=== PATIENT | male | born 1935 | race Caucasian/White ===

== ENCOUNTER 2019-03-14 20:52 | Emergency (ER) | payer MEDICARE, MEDICAID ==
[2019-03-14] MEDS ORDERED: Sodium Chloride 0.9% 10 ML Syringe FLUSH PRN (20:55)
[2019-03-14] MEDS ORDERED: Sodium Chloride 0.9% 1,000 ML IV SCH (21:00)
[2019-03-14 21:28] LABS: CHLORIDE,CL 103 mmol/L (98-107); SODIUM,NA 143 mmol/L (136-145)
[2019-03-14] MEDS ORDERED: Ondansetron 4 MG/2 ML SDV IVPUSH ONE (21:49)
--- NOTE | 2019-03-14 22:13 | EDM.PDOC ---
ED HPI GENERAL MEDICAL PROBLEM - General Chief Complaint: General Stated Complaint: nausea, vomiting, loss of appetite Time Seen by Provider: 03/14/19 21:00 Source of Information: Reports: Patient, RN Notes Reviewed History Limitations: Reports: Altered Mental Status - History of Present Illness INITIAL COMMENTS - FREE TEXT/NARRATIVE: Patient is a 83-year-old who is seen today with nausea vomiting loss of appetite coughing he has history of COPD Onset: Gradual Duration: Day(s):, Getting Worse Location: Reports: Chest, Abdomen Severity: Moderate Improves with: Reports: Medication Worsens with: Reports: None Context: Reports: Activity Associated Symptoms: Reports: No Other Symptoms - Related Data Allergies Allergy/AdvReac Type Severity Reaction Status Date / Time No Known Drug Allergies Allergy Cannot Verified 03/14/19 21:36 Remember Home Meds: Home Meds Omeprazole 20 mg PO ACBREAKFAST cap.cr 02/18/17 [Rx] Simvastatin [Zocor] 40 mg PO BEDTIME 09/25/17 [History] Acetaminophen 2 tab PO Q4HR PRN 03/14/19 [History] Albuterol Sulfate 2.5 mg IH Q4HR PRN 03/14/19 [History] Albuterol Sulfate [Proair Hfa] 1 - 2 puff IH Q2HR PRN 03/14/19 [History] Allopurinol [Zyloprim] 100 mg PO DAILY 03/14/19 [History] Arformoterol [Brovana] 15 mcg NEB BID 03/14/19 [History] Aspirin [Children's Aspirin] 81 mg PO DAILY 03/14/19 [History] Budesonide [Pulmicort] 0.5 mg IH BID 03/14/19 [History] Carboxymethylcellulos/Glycerin [Refresh Optive Gel Eye Drops] 1 drop EYEBOTH QID PRN 03/14/19 [History] Cholecalciferol (Vitamin D3) [Vitamin D3] 400 unit PO DAILY 03/14/19 [History] Dextran 70/Hypromellose [Artificial Tears] 2 drop EYEBOTH QID PRN 03/14/19 [ History] Finasteride 5 mg PO DAILY 03/14/19 [History] Latanoprost/Pf [Latanoprost 0.005% Eye Drop] 1 drop EYEBOTH BEDTIME 03/14/19 [ History] Magnesium Oxide 420 mg PO DAILY 03/14/19 [History] Montelukast [Singulair] 10 mg PO DAILY 03/14/19 [History] Neomycin/Polymyxin B Sulf/HC [Gnppjlvp-Lfbg-ZW Eye Drops] 1 drop EYERT QID 03/14 [History] Past Medical History HEENT History: Reports: Cataract, Impaired Vision, Macular Degeneration 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 Cardiovascular History: Reports: High Cholesterol, Hypertension Respiratory History: Reports: COPD Gastrointestinal History: Reports: GERD Genitourinary History: Reports: Prostate Disorder, Other (See Below) Other Genitourinary History: h/o bladder surgery from accident when younger Musculoskeletal History: Reports: Fracture, Gout Other Musculoskeletal History: crushing injury to pelvis and legs Neurological History: Reports: CVA Psychiatric History: Reports: Bipolar Hematologic History: Reports: Blood Transfusion(s) Immunologic History: Reports: None Oncologic (Cancer) History: Reports: None - Infectious Disease History Infectious Disease History: Reports: Chicken Pox, Mumps - Past Surgical History Male Surgical History: Reports: Other (See Below) Musculoskeletal Surgical History: Reports: Other (See Below) Social & Family History - Family History Family Medical History: Noncontributory - Caffeine Use Caffeine Use: Reports: Coffee ED ROS GENERAL - Review of Systems Review Of Systems: See Below Constitutional: Reports: Weakness Respiratory: Reports: Shortness of Breath Cardiovascular: Reports: No Symptoms Endocrine: Reports: No Symptoms GI/Abdominal: Reports: Decreased Appetite, Nausea, Vomiting : Reports: No Symptoms Musculoskeletal: Reports: No Symptoms Skin: Reports: No Symptoms Neurological: Reports: No Symptoms Psychiatric: Reports: No Symptoms Hematologic/Lymphatic: Reports: No Symptoms Immunologic: Reports: No Symptoms ED EXAM, GENERAL - Physical Exam Exam: See Below Exam Limited By: Altered Mental Status General Appearance: Alert, WD/WN, Mild Distress Ears: Normal External Exam, Normal Canal, Hearing Grossly Normal, Normal TMs Ear Exam: Bilateral Ear: Auricle Normal, Canal Normal, TM normal Nose: Normal Inspection, Normal Mucosa, No Blood Throat/Mouth: Normal Inspection, Normal Lips, Normal Teeth, Normal Gums, Normal Oropharynx, Normal Voice, No Airway Compromise Head: Atraumatic, Normocephalic Neck: Normal Inspection, Supple, Non-Tender, Full Range of Motion Respiratory/Chest: Decreased Breath Sounds, Prolonged Expiration Cardiovascular: Normal Peripheral Pulses, Regular Rate, Rhythm, No Edema, No Gallop, No JVD, No Murmur, No Rub GI/Abdominal: Normal Bowel Sounds, Soft, Non-Tender, No Organomegaly, No Distention, No Abnormal Bruit, No Mass (Male) Exam: Deferred Rectal (Males) Exam: Deferred Back Exam: Normal Inspection, Full Range of Motion, NT Extremities: Normal Inspection, Normal Range of Motion, Non-Tender, Normal Capillary Refill, No Pedal Edema Neurological: Alert, Oriented, CN II-XII Intact, Normal Cognition, Normal Gait, Normal Reflexes, No Motor/Sensory Deficits Psychiatric: Normal Mood Skin Exam: Warm, Dry, Intact, Normal Color, No Rash Lymphatic: No Adenopathy Course - Vital Signs Last Recorded V/S: Last Vital Signs Temp 97.7 F 03/14/19 20:54 Pulse 79 03/14/19 20:54 Resp 18 03/14/19 20:54 BP 162/103 H 03/14/19 20:54 Pulse Ox 93 L 03/14/19 20:54 - Orders/Labs/Meds Orders: Active Orders 24 hr Category Date Time Status Chest 2V [CR] Stat Exams 03/14/19 20:56 Taken Sodium Chloride 0.9% [Normal Saline] 1,000 ml Med 03/14/19 21:00 Active IV ASDIRECTED Sodium Chloride 0.9% [Saline Flush] Med 03/14/19 20:55 Active 10 ml FLUSH ASDIRECTED PRN Saline Lock Insert [OM.PC] Stat Oth 03/14/19 20:55 Ordered Medication Orders Sodium Chloride (Normal Saline) 1,000 mls @ 150 mls/hr IV ASDIRECTED LAITH Last Admin: 03/14/19 21:12 Dose: 150 mls/hr Sodium Chloride (Saline Flush) 10 ml FLUSH ASDIRECTED PRN PRN Reason: Keep Vein Open Last Admin: 03/14/19 21:52 Dose: 10 ml Labs: Laboratory Tests 03/14/19 03/14/19 Range/Units 21:00 21:00 WBC 8.5 (4.0-10.2) K/uL RBC 3.77 L (4.33-5.41) M/uL Hgb 11.6 L (13.1-16.8) g/dL Hct 35.2 L (39.0-49.0) % MCV 93.4 (84.0-98.0) fL MCH 30.8 (28.2-33.3) pg MCHC 33.0 (31.7-36.0) g/dL RDW 14.4 H (11.2-14.1) % Plt Count 212 (150-350) K/uL Neut % (Auto) 81.0 H (45.0-80.0) % Lymph % (Auto) 12.5 (10.0-50.0) % [place] % (Auto) 4.5 (2.0-14.0) % Eos % (Auto) 1.5 (0.0-5.0) % Baso % (Auto) 0.5 (0.0-2.0) % Neut # (Auto) 6.91 (1.40-7.00) K/uL Lymph # (Auto) 1.07 (0.50-3.50) K/uL [place] # (Auto) 0.38 (0.00-1.00) K/uL Eos # (Auto) 0.13 (0.00-0.50) K/uL Baso # (Auto) 0.04 (0.00-0.20) K/uL Sodium 143 (136-145) mmol/L Potassium 4.2 (3.5-5.1) mmol/L Chloride 103 (98-107) mmol/L Carbon Dioxide 29.1 (21.0-32.0) mmol/L BUN 22 H (7-18) mg/dL Creatinine 0.89 (0.51-1.17) mg/dL Est Cr Clr Drug Dosing TNP Estimated GFR (MDRD) > 60 mL/min Glucose 128 H (74-106) mg/dL Calcium 9.7 (8.5-10.1) mg/dL Meds: Medications Generic Name Dose Route Start Last Admin Trade Name Freq PRN Reason Stop Dose Admin Sodium Chloride 1,000 mls @ 150 mls/hr 03/14/19 21:00 03/14/19 21:12 Normal Saline IV 150 mls/hr ASDIRECTED LAITH Administration Sodium Chloride 10 ml 03/14/19 20:55 03/14/19 21:52 Saline Flush FLUSH 10 ml ASDIRECTED PRN Administration Keep Vein Open Discontinued Medications Generic Name Dose Route Start Last Admin Trade Name Freq PRN Reason Stop Dose Admin Ondansetron HCl 4 mg 03/14/19 21:49 03/14/19 21:52 Zofran IVPUSH 03/14/19 21:50 4 mg ONETIME ONE Administration Departure - Departure Time of Disposition: 22:13 Disposition: DC/[facility] to [facility] Condition: Fair Clinical Impression: COPD (chronic obstructive pulmonary disease) Qualifiers: COPD type: COPD with acute exacerbation Qualified Code(s): J44.1 - Chronic obstructive pulmonary disease with (acute) exacerbation - Discharge Information *PRESCRIPTION DRUG MONITORING PROGRAM REVIEWED*: No *COPY OF PRESCRIPTION DRUG MONITORING REPORT IN PATIENT JAYNE: No Referrals: Juan Shaikh MD [Primary Care Provider] - Care Plan Goals: Patient is to continue the Zithromax as ordered Prednisone 20 mg by mouth 4 times a day for 5 days then prednisone 10 mg by mouth 4 times a day for 3 days then 5 mg by mouth 4 times a day for 3 days. Zofran 4 mg every 6 hours when necessary for nausea and vomiting patient is to return to clinic if not better - My Orders Last 24 Hours: My Active Orders 03/14/19 20:55 Sodium Chloride 0.9% [Saline Flush] 10 ml FLUSH ASDIRECTED PRN Saline Lock Insert [OM.PC] Stat 03/14/19 20:56 Chest 2V [CR] Stat 03/14/19 21:00 Sodium Chloride 0.9% [Normal Saline] 1,000 ml IV ASDIRECTED - Assessment/Plan Last 24 Hours: My Active Orders 03/14/19 20:55 Sodium Chloride 0.9% [Saline Flush] 10 ml FLUSH ASDIRECTED PRN Saline Lock Insert [OM.PC] Stat 03/14/19 20:56 Chest 2V [CR] Stat 03/14/19 21:00 Sodium Chloride 0.9% [Normal Saline] 1,000 ml IV ASDIRECTED
[2019-03-14] MEDS ORDERED: Acetaminophen 325 MG Tab PO ONE (22:24)
[2019-03-14] MEDS ORDERED: Metoprolol Succinate 50 MG Tab.ER PO ONE (22:25)
[2019-03-14] MEDS ORDERED: predniSONE 20 MG Tab PO ONE (22:58)
[2019-03-15 04:12] VITALS: BP 149/78; PULSE 74
== END 2019-03-14 23:05 ==
LOC: LL.ED 20:52
DX: J44.1 Chronic obstructive pulmonary disease with (acute) exacerbation (principal); R11.2 Nausea with vomiting, unspecified; I10 Essential (primary) hypertension; E78.00 Pure hypercholesterolemia, unspecified; K21.9 Gastro-esophageal reflux disease without esophagitis; F31.9 Bipolar disorder, unspecified; Z86.73 Personal history of transient ischemic attack (TIA), and cerebral infarction without residual deficits; Z79.899 Other long term (current) drug therapy; Z79.82 Long term (current) use of aspirin
CPT/HCPCS: 36415; 71046; 80048; 85025; 96361; 96374; 99284-25; A9270-GY; J2405; J7030

== ENCOUNTER 2019-03-29 12:45 | Emergency (ER) | payer MEDICARE, MEDICAID ==
[2019-03-29 13:01] VITALS: BP 119/75; PULSE 61
--- NOTE | 2019-03-29 13:33 | EDM.PDOC ---
ED HPI GENERAL MEDICAL PROBLEM - General Chief Complaint: Headache Stated Complaint: headache Time Seen by Provider: 03/29/19 12:50 Source of Information: Reports: Patient History Limitations: Reports: No Limitations, Altered Mental Status - History of Present Illness INITIAL COMMENTS - FREE TEXT/NARRATIVE: Patient is a 83-year-old who states that for the last for 5 days he's had a massive headache which she scores it at least a 12 out of 10 he does not look in distress and is able to talk with us Onset: Gradual Duration: Day(s):, Getting Worse Location: Reports: Head Quality: Reports: Ache, Stabbing Severity: Severe Improves with: Reports: None Worsens with: Reports: Medication Associated Symptoms: Reports: Nausea/Vomiting, Shortness of Breath Treatments INSOLE CHANNELER: Reports: Acetaminophen, NSAIDS Headache Pain Score (Numeric/FACES): 10 - Related Data Allergies Allergy/AdvReac Type Severity Reaction Status Date / Time No Known Drug Allergies Allergy Cannot Verified 03/29/19 12:55 Remember Home Meds: Home Meds Simvastatin [Zocor] 40 mg PO BEDTIME 09/25/17 [History] Acetaminophen 2 tab PO Q4HR PRN MDD 3000 mg in 24 hr 03/14/19 [History] Albuterol Sulfate 2.5 mg IH Q4HR PRN 03/14/19 [History] Albuterol Sulfate [Proair Hfa] 1 - 2 puff IH Q2HR PRN 03/14/19 [History] Allopurinol [Zyloprim] 100 mg PO DAILY@99903/14/19 [History] Arformoterol [Brovana] 15 mcg NEB BID@999,199903/14/19 [History] Aspirin [Children's Aspirin] 81 mg PO DAILY@99903/14/19 [History] Budesonide [Pulmicort] 0.5 mg IH BID@999,199903/14/19 [History] Carboxymethylcellulos/Glycerin [Refresh Optive Gel Eye Drops] 1 drop EYEBOTH QID PRN 03/14/19 [History] Cholecalciferol (Vitamin D3) [Vitamin D3] 400 unit PO DAILY@99903/14/19 [ History] Dextran 70/Hypromellose [Artificial Tears] 2 drop EYEBOTH QID PRN 03/14/19 [ History] Finasteride 5 mg PO DAILY@99903/14/19 [History] Latanoprost/Pf [Latanoprost 0.005% Eye Drop] 1 drop EYEBOTH BEDTIME 03/14/19 [ History] Magnesium Oxide 420 mg PO BEDTIME 03/14/19 [History] Montelukast [Singulair] 10 mg PO BEDTIME 03/14/19 [History] Neomycin/Polymyxin B Sulf/HC [Gpgiqbtj-[id number]-XH Eye Drops] 1 drop EYERT QID@08,12 ,17,20 03/14/19 [History] Azithromycin [Zithromax] 500 mg PO [id number] 03/29/19 [History] Omeprazole 20 mg PO DAILY@1000 03/29/19 [History] Ondansetron [Zofran] 4 mg PO Q6H PRN 03/29/19 [History] predniSONE [Prednisone] 20 mg PO DAILY@1000 03/29/19 [History] Past Medical History HEENT History: Reports: Cataract, Impaired Vision, Macular Degeneration 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 Cardiovascular History: Reports: High Cholesterol, Hypertension Respiratory History: Reports: COPD Gastrointestinal History: Reports: GERD Genitourinary History: Reports: Prostate Disorder, Other (See Below) Other Genitourinary History: h/o bladder surgery from accident when younger Musculoskeletal History: Reports: Fracture, Gout Other Musculoskeletal History: crushing injury to pelvis and legs Neurological History: Reports: CVA Psychiatric History: Reports: Bipolar Hematologic History: Reports: Blood Transfusion(s) Immunologic History: Reports: None Oncologic (Cancer) History: Reports: None - Infectious Disease History Infectious Disease History: Reports: Chicken Pox, Mumps - Past Surgical History Male Surgical History: Reports: Other (See Below) Musculoskeletal Surgical History: Reports: Other (See Below) Social & Family History - Family History Family Medical History: Noncontributory - Caffeine Use Caffeine Use: Reports: Coffee ED ROS GENERAL - Review of Systems Review Of Systems: See Below Constitutional: Reports: No Symptoms HEENT: Reports: No Symptoms Respiratory: Reports: Shortness of Breath Cardiovascular: Reports: No Symptoms Endocrine: Reports: No Symptoms GI/Abdominal: Reports: No Symptoms : Reports: No Symptoms Musculoskeletal: Reports: No Symptoms Skin: Reports: No Symptoms Neurological: Reports: Confusion Psychiatric: Reports: No Symptoms Hematologic/Lymphatic: Reports: No Symptoms Immunologic: Reports: No Symptoms - Physical Exam Exam: See Below Exam Limited By: Altered Mental Status General Appearance: Alert, WD/WN, Severe Distress Ears: Normal External Exam, Normal Canal, Hearing Grossly Normal, Normal TMs Nose: Normal Inspection, Normal Mucosa, No Blood Throat/Mouth: Normal Inspection, Normal Lips, Normal Teeth, Normal Gums, Normal Oropharynx, Normal Voice, No Airway Compromise Head Exam: Atraumatic, Normocephalic Neck: Normal Inspection, Supple, Non-Tender, Full Range of Motion Respiratory/Chest: Decreased Breath Sounds, Prolonged Expiration Cardiovascular: Normal Peripheral Pulses, Regular Rate, Rhythm, No Edema, No Gallop, No JVD, No Murmur, No Rub GI/Abdominal: Normal Bowel Sounds, Soft, Non-Tender, No Organomegaly, No Distention, No Abnormal Bruit, No Mass Neuro Exam (Abbreviated): Alert, Oriented, CN II-XII Intact Back Exam: Normal Inspection, Full Range of Motion, NT Extremities: Normal Inspection, Normal Range of Motion, Non-Tender, No Pedal Edema, Normal Capillary Refill Skin Exam: Warm, Dry, Intact, Normal Color, No Rash Course - Vital Signs Last Recorded V/S: Last Vital Signs Temp 97.6 F 03/29/19 13:00 Pulse 61 03/29/19 13:00 Resp 20 03/29/19 13:00 BP 119/75 03/29/19 13:00 Pulse Ox 99 03/29/19 13:00 - Orders/Labs/Meds Orders: Active Orders 24 hr Category Date Time Status Head wo Cont [CT] Stat Exams 03/29/19 13:22 Taken Departure - Departure Time of Disposition: 14:20 Disposition: Home, Self-Care 01 Condition: Fair Clinical Impression: Sinusitis Sinusitis Qualifiers: Sinusitis location: ethmoidal Chronicity: acute - Discharge Information *PRESCRIPTION DRUG MONITORING PROGRAM REVIEWED*: No *COPY OF PRESCRIPTION DRUG MONITORING REPORT IN PATIENT JAYNE: No Referrals: Juan Shaikh MD [Primary Care Provider] - Forms: ED Department Discharge Care Plan Goals: CT of the head shows ethmoid and frontal sinusitis with mucosal swelling. At this time patient will be started on Augmentin 875 twice a day for 10 days we will go ahead and give him Maya-D 24 hours 1 tablet a day and Flonase one shot each nostril twice a day. - My Orders Last 24 Hours: My Active Orders 03/29/19 13:22 Head wo Cont [CT] Stat - Assessment/Plan Last 24 Hours: My Active Orders 03/29/19 13:22 Head wo Cont [CT] Stat
== END 2019-03-29 15:00 ==
LOC: LL.ED 12:45
DX: J01.20 Acute ethmoidal sinusitis, unspecified (principal); I10 Essential (primary) hypertension; E78.5 Hyperlipidemia, unspecified; J44.9 Chronic obstructive pulmonary disease, unspecified; K21.9 Gastro-esophageal reflux disease without esophagitis; Z79.51 Long term (current) use of inhaled steroids; Z79.899 Other long term (current) drug therapy
CPT/HCPCS: 70450; 99284-25

== ENCOUNTER 2020-12-15 22:15 | Emergency (ER) | payer MEDICARE, MEDICAID ==
[~2020-12-15 22:15] MED LIST: Lidocaine 2% HCl 11 ML Jelly Filled Syringe TOP ONE
--- NOTE | 2020-12-15 22:19 | EDM.PDOC ---
ED HPI GENERAL MEDICAL PROBLEM - General Chief Complaint: Genitourinary Problem Stated Complaint: blister to end of penis,unable to void Time Seen by Provider: 12/15/20 22:18 Source of Information: Reports: Patient, Assisted Records (Extremely limited verbal report prior to transfer), Old Records ([facility] EMR. No paper hospital chart available.) History Limitations: Reports: Altered Mental Status - History of Present Illness INITIAL COMMENTS - FREE TEXT/NARRATIVE: The patient was brought to the emergency room via transport vehicle from [facility] for further evaluation of a blister on his glans penis and a 2-3-day history of difficulty with urination. No history of local injury, fever, hematuria, colic, or other UTI symptoms. No recent history of abdominal pain, heartburn, nausea, diarrhea, melena, gross hematochezia, or any food intolerance, including fatty foods, etc.. The patient also denies any recent fever, cough, wheezing, dyspnea, etc.. The patient denies any chest pain/pressure, heart flutter, dizziness, orthostasis, orthopnea, diaphoresis, paresthesias, recent decreased exercise tolerance, or any other anginal-type symptoms. He is a somewhat poor historian secondary to his borderline organic brain syndrome and presbycusis. Bladder scan at the snf prior to patient's transfer showed urinary retention of 300+ cc. Onset: Gradual, Unknown/Unsure Onset Date: 12/13/20 Duration: Constant, Getting Worse Location: Reports: Abdomen (Secondary to urinary retention). Denies: Head, Face, Neck, Chest, Back, Pelvis, Upper Extremity, Left, Upper Extremity, Right, Radiates to Quality: Reports: Ache, Same as Previous Episode Severity: Moderate Improves with: Reports: None Worsens with: Reports: None Context: Reports: Other (As above). Denies: Sick Contact, Trauma Associated Symptoms: Reports: Rash (Blister as above). 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 (see below) (None) - Related Data Allergies Allergy/AdvReac Type Severity Reaction Status Date / Time No Known Drug Allergies Allergy Cannot Verified 03/29/19 12:55 Remember Home Meds: Home Meds Simvastatin [Zocor] 40 mg PO BEDTIME 09/25/17 [History] Albuterol Sulfate 2.5 mg IH Q4HR PRN 03/14/19 [History] Albuterol Sulfate [Proair Hfa] 1 - 2 puff IH Q2HR PRN 03/14/19 [History] Aspirin [Children's Aspirin] 81 mg PO DAILY 03/14/19 [History] Carboxymethylcellulos/Glycerin [Refresh Optive Gel Eye Drops] 1 drop EYEBOTH QID PRN 03/14/19 [History] Cholecalciferol (Vitamin D3) [Vitamin D3] 400 unit PO DAILY 03/14/19 [History] Finasteride 5 mg PO DAILY 03/14/19 [History] Latanoprost/Pf [Latanoprost 0.005% Eye Drop] 1 drop EYEBOTH BEDTIME 03/14/19 [History] Magnesium Oxide 420 mg PO BEDTIME 03/14/19 [History] Montelukast [Singulair] 10 mg PO BEDTIME 03/14/19 [History] Neomycin/Polymyxin B/Hydrocort [Wpbkojka-Auje-WN Eye Drops] 1 drop EYERT QID@08,12,17,20 03/14/19 [History] allopurinoL [Zyloprim] 100 mg PO DAILY 03/14/19 [History] Omeprazole 20 mg PO DAILY 03/29/19 [History] Docusate Sodium [Colace] 1 - 2 cap PO DAILY PRN 12/15/20 [History] Ibuprofen 400 mg PO Q6HR PRN 12/15/20 [History] Menthol [[place]] 1 lozenge PO Q2HR PRN 12/15/20 [History] Propylene Glycol/PEG 400/Pf [Lubricant Eye 0.4%-0.3% Drops] 1 each OP ,18 12/15/20 [History] Tamsulosin [Tamsulosin 24 Hr] 0.4 mg PO DAILY 12/15/20 [History] guaiFENesin/Dextromethorphan [Mucinex Dm ER 600-30 mg Tablet] 1 each PO 08,18 12/15/20 [History] Past Medical History HEENT History: Reports: Allergic Rhinitis, Cataract, Glaucoma, Hard of Hearing, Impaired Vision, Macular Degeneration, Sinusitis. Denies: Retinal Detachment Other HEENT History: Dry eye syndrome. History of right retinal artery occlusion additional. Bilateral blindness with additional previous left central retinal vein occlusion. Bilateral macular edema. Cardiovascular History: Reports: CAD, Cardiomyopathy, Heart Failure, High Cholesterol, Hypertension, PVD, Other (See Below). Denies: IA Other Cardiovascular History: CHF including diastolic dysfunction. Hypertension with history of hypotension. Bilateral carotid occlusive disease. Respiratory History: Reports: Bronchitis, Recurrent, COPD, Intubation, Previous, Pneumonia, Recurrent, Other (See Below). Denies: Intubation, Difficult Other Respiratory History: Recurrent aspiration pneumonia secondary to dysphagia? Gastrointestinal History: Reports: Cholelithiasis, Chronic Constipation, GERD, Hiatal Hernia, Pancreatitis, Other (See Below) Other Gastrointestinal History: Dysphagia. Pancreatitis on 08/18/2016 likely secondary to cholestasis. Portal hypertension. Diaphragmatic hernia. Genitourinary History: Reports: BPH, Prostate Disorder, Urinary Incontinence, UTI, Recurrent, Other (See Below) Other Genitourinary History: h/o bladder surgery from accident/trauma when younger. 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 Musculoskeletal History: Reports: Arthritis, Fracture, Gout, Osteoarthritis, Other (See Below) Other Musculoskeletal History: Crushing injury to pelvis and legs bilaterally requiring surgery as below. 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 Psychiatric History: Reports: Alzheimers Disease, Anxiety, Bipolar, Dementia, Depression, Other (See Below) Other Psychiatric History: Beginning organic brain syndrome as above. Endocrine/Metabolic History: Reports: Vitamin D Deficiency, Other (See Below) Other Endocrine/Metabolic History: Hypoalbuminemia. Hematologic History: Reports: Blood Transfusion(s) Immunologic History: Reports: None Oncologic (Cancer) History: Reports: None - Infectious Disease History Infectious Disease History: Reports: Chicken Pox, Mumps - Past Surgical History HEENT Surgical History: Reports: Cataract Surgery, Oral Surgery, Other (See Below) Other HEENT Surgeries/Procedures: Complete teeth extraction. GI Surgical History: Reports: Cholecystectomy, Colonoscopy, ERCP, Other (See Below) Other GI Surgeries/Procedures: Probable ERCP with additional cholecystectomy in 2017. Male Surgical History: Reports: Other (See Below) Other Male Surgeries/Procedures: Bladder repair secondary to severe crush injury. Musculoskeletal Surgical History: Reports: ORIF, Other (See Below) Other Musculoskeletal Surgeries/Procedures:: Severe trauma requiring nonspecific bilateral leg surgery/ORIF, along with pelvic surgery from trauma? - Past Imaging History Past Imaging History: Reports: CAT Scan (Head on 03/29/2019. Abdomen pelvis on 08/18/2016. Chest on 08/06/2016 and 05/30/2016.) Social & Family History - Family History Family Medical History: No Pertinent Family History - Tobacco Use Tobacco Use Status *Q: Former Tobacco User Tobacco Use Within Last Twelve Months: No Years of Tobacco use: 20 Packs/Tins Daily: 4 Used Tobacco, but Quit: Yes Smoking Cessation Information Provided To Patient: No Second Hand Smoke Exposure: No Second Hand Smoke Education Provided: No - Caffeine Use Caffeine Use: Reports: Coffee - Alcohol Use Alcohol Use History: No Alcohol Use in Last Twelve Months: No - Living Situation & Occupation Living situation: Reports: Extended Care Facility ([facility]) 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 ED EXAM, RENAL/ - Physical Exam Exam: See Below Exam Limited By: No Limitations General Appearance: Alert, WD/WN, No Apparent Distress, Cachetic (Mild) Eye Exam: Bilateral Eye: Vision Changes (Stable bilateral blindness. Anisocoria with right pupil 6 mm and left pupil 3 mm) Ears: Normal External Exam, Normal TMs, Hearing Loss (Moderate bilateral presbycusis) Nose: Normal Inspection, Normal Mucosa, No Blood Throat/Mouth: Normal Inspection, Normal Lips, Normal Gums, Normal Oropharynx, Normal Voice, No Airway Compromise. No: Normal Teeth (Complete absent dentition), Dysphagia, Perioral Cyanosis Head: Atraumatic, Normocephalic. No: Facial Swelling, Facial Tenderness, Sinus Tenderness Neck: Supple, Non-Tender, Full Range of Motion, Carotid Bruit (Mild bilateral carotid bruits). No: Lymphadenopathy (L), Lymphadenopathy (R), Thyromegaly Respiratory/Chest: No Respiratory Distress, Lungs Clear, Normal Breath Sounds, No Accessory Muscle Use, Chest Non-Tender. No: Pleural Rub, Retractions Cardiovascular: Normal Peripheral Pulses, Regular Rate, Rhythm, No Edema, No Gallop, No JVD, No Murmur, No Rub. No: Gallop/S3, Gallop/S4, Friction Rub GI/Abdominal: Normal Bowel Sounds, Soft, Non-Tender, No Organomegaly, No Distention, No Abnormal Bruit, No Mass. No: Guarding (Male) Exam: Other (Clear blister over the glans penis with partial phimosis and severe urethral stenosis) Rectal (Males) Exam: Deferred Back Exam: Normal Inspection, Full Range of Motion. No: CVA Tenderness (L), CVA Tenderness (R), Muscle Spasm Extremities: Normal Inspection, Normal Range of Motion, Non-Tender, No Pedal Edema, Normal Capillary Refill. No: Pam's Sign Neurological: Alert, Normal Reflexes (Negative Babinski's), Confused (Mild organic brain syndrome stable by history) Psychiatric: Normal Affect, Normal Mood Skin Exam: Warm, Dry, Intact, Normal Color, No Rash. No: Diaphoretic, Wound/Incision Lymphatic: No Adenopathy Course - Vital Signs Last Recorded V/S: Last Vital Signs Temp 36.7 C 12/15/20 22:15 Pulse 72 12/15/20 22:15 Resp 18 12/15/20 22:15 BP 132/68 12/15/20 22:15 Pulse Ox 95 12/15/20 22:15 Vital Signs - 24 hr 12/15/20 22:15 Temperature [ 36.7 C Temporal] Pulse, 72 Peripheral [ Left Pulse Oximetry] Respiratory 18 Rate Blood Pressure 132/68 [Left Upper Arm ] O2 Sat by Pulse 95 Oximetry - Orders/Labs/Meds Orders: Active Orders 24 hr Category Date Time Status Peripheral IV Care [RC] . DIRECTED Care 12/15/20 22:24 Active CULTURE URINE [RM] Routine Lab 12/15/20 22:51 Received Sodium Chloride 0.9% [Saline Flush] Med 12/15/20 22:24 Active 10 ml FLUSH ASDIRECTED PRN Obtain Past Medical Record [OM.PC] Routine Oth 12/15/20 22:23 Active Peripheral IV Insertion Adult [OM.PC] Routine Oth 12/15/20 22:24 Ordered Medication Orders Sodium Chloride (Sodium Chloride 0.9% 10 Ml Syringe) 10 ml FLUSH ASDIRECTED PRN PRN Reason: Keep Vein Open Labs: Laboratory Tests 06/17/21 06/17/21 06/17/21 Range/Units 22:30 22:30 22:30 WBC 6.6 (4.0-10.2) K/uL RBC 3.59 L (4.33-5.41) M/uL Hgb 11.2 L (13.1-16.8) g/dL Hct 34.6 L (39.0-49.0) % MCV 96.4 (84.0-98.0) fL MCH 31.2 (28.2-33.3) pg MCHC 32.4 (31.7-36.0) g/dL RDW 13.7 (11.2-14.1) % Plt Count 217 (150-350) K/uL Neut % (Auto) 72.9 (45.0-80.0) % Lymph % (Auto) 18.5 (10.0-50.0) % [place] % (Auto) 6.8 (2.0-14.0) % Eos % (Auto) 1.5 (0.0-5.0) % Baso % (Auto) 0.3 (0.0-2.0) % Neut # (Auto) 4.84 (1.40-7.00) K/uL Lymph # (Auto) 1.23 (0.50-3.50) K/uL [place] # (Auto) 0.45 (0.00-1.00) K/uL Eos # (Auto) 0.10 (0.00-0.50) K/uL Baso # (Auto) 0.02 (0.00-0.20) K/uL Sodium 143 (136-145) mmol/L Potassium 4.4 (3.5-5.1) mmol/L Chloride 107 (98-107) mmol/L Carbon Dioxide 31.2 (21.0-32.0) mmol/L BUN 25 H (7-18) mg/dL Creatinine 1.21 H (0.51-1.17) mg/dL Est Cr Clr Drug Dosing TNP Estimated GFR (MDRD) 57 mL/min Glucose 127 H (70-99) mg/dL Uric Acid 4.3 (2.6-7.2) mg/dL Calcium 8.8 (8.5-10.1) mg/dL Phosphorus 2.9 (2.6-4.7) mg/dL Magnesium 2.0 (1.8-2.4) mg/dL Total Bilirubin 0.2 (0.2-1.0) mg/dL AST 18 (15-37) U/L ALT 15 (12-78) U/L Alkaline Phosphatase 69 (46-116) IU/L Total Protein 6.5 (6.4-8.2) g/dL Albumin 3.3 L (3.4-5.0) g/dL Specimen Type Urine Color Urine Appearance Urine pH (5.0-9.0) Ur Specific [place] (1.005-1.030) Urine Protein (NEGATIVE) mg/dL Urine Glucose (UA) (NEGATIVE) mg/dL Urine Ketones (NEGATIVE) mg/dL Urine Occult Blood (NEGATIVE) Urine Nitrite (NEGATIVE) Urine Bilirubin (NEGATIVE) Urine Urobilinogen (0.2-1.0) E.U./dL Ur Leukocyte Esterase (NEGATIVE) Urine RBC /HPF Urine WBC /HPF Ur Epithelial Cells /LPF Urine Bacteria (NONE TO FEW) /HPF SARS-CoV-2 RNA (MARIA LUISA) (NEGATIVE) 12/15/20 12/15/20 Range/Units 22:51 23:10 WBC (4.0-10.2) K/uL RBC (4.33-5.41) M/uL Hgb (13.1-16.8) g/dL Hct (39.0-49.0) % MCV (84.0-98.0) fL MCH (28.2-33.3) pg MCHC (31.7-36.0) g/dL RDW (11.2-14.1) % Plt Count (150-350) K/uL Neut % (Auto) (45.0-80.0) % Lymph % (Auto) (10.0-50.0) % [place] % (Auto) (2.0-14.0) % Eos % (Auto) (0.0-5.0) % Baso % (Auto) (0.0-2.0) % Neut # (Auto) (1.40-7.00) K/uL Lymph # (Auto) (0.50-3.50) K/uL [place] # (Auto) (0.00-1.00) K/uL Eos # (Auto) (0.00-0.50) K/uL Baso # (Auto) (0.00-0.20) K/uL Sodium (136-145) mmol/L Potassium (3.5-5.1) mmol/L Chloride (98-107) mmol/L Carbon Dioxide (21.0-32.0) mmol/L BUN (7-18) mg/dL Creatinine (0.51-1.17) mg/dL Est Cr Clr Drug Dosing Estimated GFR (MDRD) mL/min Glucose (70-99) mg/dL Uric Acid (2.6-7.2) mg/dL Calcium (8.5-10.1) mg/dL Phosphorus (2.6-4.7) mg/dL Magnesium (1.8-2.4) mg/dL Total Bilirubin (0.2-1.0) mg/dL AST (15-37) U/L ALT (12-78) U/L Alkaline Phosphatase (46-116) IU/L Total Protein (6.4-8.2) g/dL Albumin (3.4-5.0) g/dL Specimen Type Urincc Urine Color Dark yellow Urine Appearance Slightly cloudy Urine pH 5.5 (5.0-9.0) Ur Specific [place] >= 1.030 (1.005-1.030) Urine Protein 30 H (NEGATIVE) mg/dL Urine Glucose (UA) Negative (NEGATIVE) mg/dL Urine Ketones Negative (NEGATIVE) mg/dL Urine Occult Blood Moderate H (NEGATIVE) Urine Nitrite Negative (NEGATIVE) Urine Bilirubin Negative (NEGATIVE) Urine Urobilinogen 0.2 (0.2-1.0) E.U./dL Ur Leukocyte Esterase Trace H (NEGATIVE) Urine RBC 50-75 H /HPF Urine WBC >100 H /HPF Ur Epithelial Cells Few /LPF Urine Bacteria Few (NONE TO FEW) /HPF SARS-CoV-2 RNA (MARIA LUISA) Negative (NEGATIVE) Urine specimen set up for culture and sensitivity Meds: Medications Generic Name Dose Route Start Last Admin Trade Name Freq PRN Reason Stop Dose Admin Sodium Chloride 10 ml 12/15/20 22:24 Sodium Chloride 0.9% 10 Ml Syringe FLUSH ASDIRECTED PRN Keep Vein Open Discontinued Medications Generic Name Dose Route Start Last Admin Trade Name Freq PRN Reason Stop Dose Admin Ceftriaxone Sodium Confirm 12/15/20 23:44 Ceftriaxone 1 Gm Vial Administered 12/15/20 23:45 Dose 1 gm .ROUTE .STK-MED ONE Ceftriaxone Sodium 1 gm/ 100 mls @ 200 mls/hr 12/15/20 23:14 12/15/20 23:48 Sodium Chloride IV 12/15/20 23:43 200 mls/hr ONETIME ONE Administration - Radiology Interpretation Free Text/Narrative:: None Departure - Departure Time of Disposition: 00:10 Disposition: DC/Tfer to Acute Hospital 02 Condition: Fair Clinical Impression: Peptic reflux disease, Renal insufficiency COPD (chronic obstructive pulmonary disease) Qualifiers: COPD type: emphysema Emphysema type: panlobular Qualified Code(s): J43.1 - Panlobular emphysema Hypertension Qualifiers: Hypertension type: essential hypertension Qualified Code(s): I10 - Essential (primary) hypertension BPH (benign prostatic hyperplasia) Qualifiers: Lower urinary tract symptom presence: symptoms present Lower urinary tract symptom detail: urinary retention Qualified Code(s): N40.1 - Benign prostatic hyperplasia with lower urinary tract symptoms Urethral stricture Qualifiers: Urethral stricture type: unspecified stricture type Urethral stricture sex- location: male urethra-anterior Qualified Code(s): N35.914 - Unspecified anterior urethral stricture, male UTI (urinary tract infection) Qualifiers: Urinary tract infection type: acute cystitis Hematuria presence: without hematuria Qualified Code(s): N30.00 - Acute cystitis without hematuria Anemia Qualifiers: Anemia type: unspecified type Qualified Code(s): D64.9 - Anemia, unspecified Osteoarthritis Qualifiers: Osteoarthritis location: multiple joints Osteoarthritis type: primary Qualified Code(s): M89.49 - Other hypertrophic osteoarthropathy, multiple sites - Discharge Information *PRESCRIPTION DRUG MONITORING PROGRAM REVIEWED*: Not Applicable *COPY OF PRESCRIPTION DRUG MONITORING REPORT IN PATIENT JAYNE: Not Applicable Referrals: Kirit Moser PA [Primary Care Provider] - Forms: ED Department Discharge, Interfacility Transfer EMTALA Sepsis Event Note (ED) - Focused Exam Vital Signs: Vital Signs Temp Pulse Resp BP Pulse Ox 12/15/20 22:15 36.7 C 72 18 132/68 95 - Problem List & Annotations (1) Urethral stricture SNOMED Code(s): 45113805 Code(s): N35.919 - UNSPECIFIED URETHRAL STRICTURE, MALE, UNSPECIFIED SITE Status: Acute Priority: High Current Visit: No Onset Date: 12/15/20 Annotation/Comment:: Telephone consultation at 11:[address] Fajardo, ER physician at [facility], who does agree to accept the patient for further evaluation, probable urology consultation, and possible admission into their facility, with no further treatment recommendations given. Severe urethral stricture with urinary retention and unsuccessful placement of a Vargas catheter both prior to arrival by the nurses at the snf and also 2 attempts in this facility by our ER nurse, including with a Coudette catheter. Note glans penis disinfected with Hibiclens swab with a number 19-gauge needle used to lightly perform an I&D of the blister over the penis with no local signs of infection or complications. Ambulance transfer with transit department clerk accompaniment. Vital signs and clinical exam were stable at time of transfer. Qualifiers: Urethral stricture type: unspecified stricture type Urethral stricture sex- location: male urethra-anterior Qualified Code(s): N35.914 - Unspecified anterior urethral stricture, male (2) UTI (urinary tract infection) SNOMED Code(s): 36908136 Code(s): N39.0 - URINARY TRACT INFECTION, SITE NOT SPECIFIED Status: Acute Priority: High Current Visit: No Onset Date: 12/15/20 Annotation/Comment:: Urine specimen set up for culture and sensitivity. IV Rocephin therapy initiated in the emergency room and will be continued in route. Hematuria likely secondary to mild trauma from Vargas catheter placement attempt Qualifiers: Urinary tract infection type: acute cystitis Hematuria presence: without hematuria Qualified Code(s): N30.00 - Acute cystitis without hematuria (3) Renal insufficiency SNOMED Code(s): 403455432, 357968344 Code(s): N28.9 - DISORDER OF KIDNEY AND URETER, UNSPECIFIED Status: Acute Priority: Medium Current Visit: No Onset Date: 12/15/20 Annotation/Comment:: Observe for now (4) COPD (chronic obstructive pulmonary disease) SNOMED Code(s): 41524386 Code(s): J44.9 - CHRONIC OBSTRUCTIVE PULMONARY DISEASE, UNSPECIFIED Status: Chronic Priority: Medium Current Visit: No Annotation/Comment:: No recent fever or bronchitic type symptoms. Qualifiers: COPD type: emphysema Emphysema type: panlobular Qualified Code(s): J43.1 - Panlobular emphysema (5) Hypertension SNOMED Code(s): 55821723 Code(s): I10 - ESSENTIAL (PRIMARY) HYPERTENSION Status: Chronic Priority: Medium Current Visit: No Annotation/Comment:: Stable in the emergency room. Qualifiers: Hypertension type: essential hypertension Qualified Code(s): I10 - Essential (primary) hypertension (6) Osteoarthritis SNOMED Code(s): 258574449 Code(s): M19.90 - UNSPECIFIED OSTEOARTHRITIS, UNSPECIFIED SITE Status: Chronic Priority: Medium Current Visit: No Annotation/Comment:: Stable by history with history of hyperuricemia with no current gout attacks. Qualifiers: Osteoarthritis location: multiple joints Osteoarthritis type: primary Qualified Code(s): M89.49 - Other hypertrophic osteoarthropathy, multiple sites (7) Peptic reflux disease SNOMED Code(s): 032292616 Code(s): K21.9 - GASTRO-ESOPHAGEAL REFLUX DISEASE WITHOUT ESOPHAGITIS Status: Chronic Priority: Medium Current Visit: No Annotation/Comment:: Stable by history and per medical records with no evidence of acute GI bleed. - Problem List Review Problem List Initiated/Reviewed/Updated: Yes - My Orders Last 24 Hours: My Active Orders 12/15/20 22:23 Obtain Past Medical Record [OM.PC] Routine 12/15/20 22:24 Peripheral IV Care [RC] . DIRECTED Sodium Chloride 0.9% [Saline Flush] 10 ml FLUSH ASDIRECTED PRN Peripheral IV Insertion Adult [OM.PC] Routine 12/15/20 22:51 CULTURE URINE [RM] Routine - Assessment/Plan Last 24 Hours: My Active Orders 12/15/20 22:23 Obtain Past Medical Record [OM.PC] Routine 12/15/20 22:24 Peripheral IV Care [RC] . DIRECTED Sodium Chloride 0.9% [Saline Flush] 10 ml FLUSH ASDIRECTED PRN Peripheral IV Insertion Adult [OM.PC] Routine 12/15/20 22:51 CULTURE URINE [RM] Routine Assessment:: As above Plan: As above. Extensive precautions were given to the patient, who is in agreement with the treatment plan. Ambulance transfer to [place] as above.
[2020-12-15] MEDS ORDERED: Sodium Chloride 0.9% 10 ML Syringe FLUSH PRN (22:24)
[2020-12-15 22:59] LABS: CHLORIDE,CL 107 mmol/L (98-107); SODIUM,NA 143 mmol/L (136-145)
[2020-12-15 23:04] VITALS: BP 132/68; PULSE 72
[2020-12-15] MEDS ORDERED: cefTRIAXone 1 GM in Sodium Chloride 0.9% 100 ML IV ONE (23:14)
[2020-12-15] MEDS ORDERED: cefTRIAXone 1 GM Vial ONE (23:44)
== END 2020-12-16 00:10 ==
LOC: LL.ED 22:15
DX: N30.00 Acute cystitis without hematuria (principal); N35.914 Unspecified anterior urethral stricture, male; D64.9 Anemia, unspecified; N40.1 Benign prostatic hyperplasia with lower urinary tract symptoms; M89.49 Other hypertrophic osteoarthropathy, multiple sites; I10 Essential (primary) hypertension; J43.1 Panlobular emphysema; K21.9 Gastro-esophageal reflux disease without esophagitis; N28.9 Disorder of kidney and ureter, unspecified; I25.10 Atherosclerotic heart disease of native coronary artery without angina pectoris; I11.0 Hypertensive heart disease with heart failure; I50.9 Heart failure, unspecified; E78.00 Pure hypercholesterolemia, unspecified; M10.9 Gout, unspecified; G30.9 Alzheimer's disease, unspecified; F02.80 Dementia in other diseases classified elsewhere, unspecified severity, without behavioral disturbance, psychotic disturbance, mood disturbance, and anxiety; Z86.73 Personal history of transient ischemic attack (TIA), and cerebral infarction without residual deficits; Z79.82 Long term (current) use of aspirin; Z79.899 Other long term (current) drug therapy; Z87.891 Personal history of nicotine dependence; Z20.822 Contact with and (suspected) exposure to COVID-19
CPT/HCPCS: 36415; 51798; 80053; 81001; 83735; 84100; 84550; 85025; 87086; 96365; 99284; 99284-25; A9270-GY; J0696; U0002

== ENCOUNTER 2021-01-03 16:15 | Emergency (ER) | payer MEDICARE, MEDICAID ==
--- NOTE | 2021-01-03 17:07 | EDM.PDOC ---
ED HPI GENERAL MEDICAL PROBLEM - General Chief Complaint: Cardiovascular Problem Stated Complaint: Positive Troponin Time Seen by Provider: 01/03/21 16:27 Source of Information: Reports: Patient, Provider, RN Notes Reviewed - History of Present Illness INITIAL COMMENTS - FREE TEXT/NARRATIVE: Yobany Israel" is an 85 y/o male who lives at the [facility]. He was seen today at the [facility] in [facility] for increased fatigue and malaise. The clinic did labs, an EKG, and ordered a CXR to be done. The labs did come back with an elevated Troponin of 0.058. The PA at the clinic sent him to the ER for further monitoring. The patient does admit that he had some left-sided chest pain, but that it is now resolved in the ER. He does report that he gets this pain every now and then and he admits he has had it "very rarely" for some time. - Related Data Allergies Allergy/AdvReac Type Severity Reaction Status Date / Time No Known Drug Allergies Allergy Cannot Verified 03/29/19 12:55 Remember Home Meds: Home Meds Simvastatin [Zocor] 40 mg PO BEDTIME 09/25/17 [History] Albuterol Sulfate 2.5 mg IH Q4HR PRN 03/14/19 [History] Albuterol Sulfate [Proair Hfa] 1 - 2 puff IH Q2HR PRN 03/14/19 [History] Aspirin [Children's Aspirin] 81 mg PO DAILY 03/14/19 [History] Carboxymethylcellulos/Glycerin [Refresh Optive Gel Eye Drops] 1 drop EYEBOTH QID PRN 03/14/19 [History] Cholecalciferol (Vitamin D3) [Vitamin D3] 400 unit PO DAILY 03/14/19 [History] Finasteride 5 mg PO DAILY 03/14/19 [History] Latanoprost/Pf [Latanoprost 0.005% Eye Drop] 1 drop EYEBOTH BEDTIME 03/14/19 [History] Magnesium Oxide 420 mg PO BEDTIME 03/14/19 [History] Montelukast [Singulair] 10 mg PO BEDTIME 03/14/19 [History] Neomycin/Polymyxin B/Hydrocort [Gjcruskz-Rxqt-PS Eye Drops] 1 drop EYERT QID PRN 03/14/19 [History] allopurinoL [Zyloprim] 100 mg PO DAILY 03/14/19 [History] Omeprazole 20 mg PO DAILY 03/29/19 [History] Docusate Sodium [Colace] 1 - 2 cap PO DAILY PRN 12/15/20 [History] Ibuprofen 400 mg PO Q6HR PRN 12/15/20 [History] Menthol [[place]] 1 lozenge PO Q2HR PRN 12/15/20 [History] Propylene Glycol/PEG 400/Pf [Lubricant Eye 0.4%-0.3% Drops] 1 each OP ,12/15/20 [History] Tamsulosin [Tamsulosin 24 Hr] 0.4 mg PO DAILY 12/15/20 [History] guaiFENesin/Dextromethorphan [Mucinex Dm ER 600-30 mg Tablet] 1 each PO ,12/15/20 [History] Bacitracin [Bacitracin Oint] 1 applic TOP TID PRN 01/03/21 [History] Past Medical History HEENT History: Reports: Allergic Rhinitis, Cataract, Glaucoma, Hard of Hearing, Impaired Vision, Macular Degeneration, Sinusitis. Denies: Retinal Detachment Other HEENT History: Dry eye syndrome. History of right retinal artery occlusion additional. Bilateral blindness with additional previous left central retinal vein occlusion. Bilateral macular edema. Cardiovascular History: Reports: CAD, Cardiomyopathy, Heart Failure, High Cholesterol, Hypertension, PVD, Other (See Below). Denies: [place] Other Cardiovascular History: CHF including diastolic dysfunction. Hypertension with history of hypotension. Bilateral carotid occlusive disease. Respiratory History: Reports: Bronchitis, Recurrent, COPD, Intubation, Previous, Pneumonia, Recurrent, Other (See Below). Denies: Intubation, Difficult Other Respiratory History: Recurrent aspiration pneumonia secondary to dysphagia? Gastrointestinal History: Reports: Cholelithiasis, Chronic Constipation, GERD, Hiatal Hernia, Pancreatitis, Other (See Below) Other Gastrointestinal History: Dysphagia. Pancreatitis on 08/18/2016 likely secondary to cholestasis. Portal hypertension. Diaphragmatic hernia. Genitourinary History: Reports: BPH, Prostate Disorder, Urinary Incontinence, UTI, Recurrent, Other (See Below) Other Genitourinary History: h/o bladder surgery from accident/trauma when younger. 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 Musculoskeletal History: Reports: Arthritis, Fracture, Gout, Osteoarthritis, Other (See Below) Other Musculoskeletal History: Crushing injury to pelvis and legs bilaterally re quiring surgery as below. 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 Psychiatric History: Reports: Alzheimers Disease, Anxiety, Bipolar, Dementia, Depression, Other (See Below) Other Psychiatric History: Beginning organic brain syndrome as above. Endocrine/Metabolic History: Reports: Vitamin D Deficiency, Other (See Below) Other Endocrine/Metabolic History: Hypoalbuminemia. Hematologic History: Reports: Blood Transfusion(s) Immunologic History: Reports: None Oncologic (Cancer) History: Reports: None - Infectious Disease History Infectious Disease History: Reports: Chicken Pox, Mumps - Past Surgical History Other Male Surgeries/Procedures: Bladder repair secondary to severe crush injury. Musculoskeletal Surgical History: Reports: ORIF, Other (See Below) Other Musculoskeletal Surgeries/Procedures:: Severe trauma requiring nonspecific bilateral leg surgery/ORIF, along with pelvic surgery from trauma? - Past Imaging History Past Imaging History: Reports: CAT Scan (Head on 03/29/2019. Abdomen pelvis on 08/18/2016. 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.) ED ROS GENERAL - Review of Systems Review Of Systems: See Below Constitutional: Reports: Malaise, Fatigue HEENT: Reports: No Symptoms Respiratory: Reports: No Symptoms Cardiovascular: Reports: No Symptoms Endocrine: Reports: Fatigue GI/Abdominal: Reports: No Symptoms : Reports: No Symptoms Musculoskeletal: Reports: No Symptoms Skin: Reports: No Symptoms Neurological: Reports: No Symptoms Psychiatric: Reports: No Symptoms Hematologic/Lymphatic: Reports: No Symptoms Immunologic: Reports: No Symptoms ED EXAM, GENERAL - Physical Exam Exam: See Below Exam Limited By: Altered Mental Status (Elderly male, seems to answer most questions appropriately.) General Appearance: Alert, WD/WN, Thin Eye Exam: Bilateral Eye: PERRL Ears: Hearing Grossly Normal Nose: Normal Inspection, Normal Mucosa Throat/Mouth: Normal Inspection, Normal Oropharynx, Normal Voice Head: Atraumatic, Normocephalic Neck: Supple Respiratory/Chest: No Respiratory Distress, Lungs Clear, Chest Non-Tender Cardiovascular: Normal Peripheral Pulses, Regular Rate, Rhythm, No Murmur GI/Abdominal: Normal Bowel Sounds, Soft (Male) Exam: Deferred Rectal (Males) Exam: Deferred Back Exam: Normal Inspection Extremities: Normal Inspection, Normal Range of Motion, No Pedal Edema, Normal Capillary Refill Neurological: Alert, Oriented, CN II-XII Intact. No: Confused (occasional) Psychiatric: Normal Affect Skin Exam: Warm, Dry, Intact, Normal Color Lymphatic: No Adenopathy #1 Interpretation EKG Date: 01/03/21 Time: 16:23 Rhythm: NSR Rate (Beats/Min): 85 [place]: Normal P-Wave: Present QRS: Normal ST-T: Normal QT: Normal Comparison: No Change EKG Interpretation Comments: Note some ST-T wave abnormality in V1, V2, V5, & V6. Sinus Rhythm, No STEMI. Course - Vital Signs Text/Narrative:: 162 The patient was seen by the [facility]. EKG was repeated on arrival. Labs reviewed from clinic vist. noted Troponin I=0.058, BUN=32, Vegetables Cook=1.32, CRP=8.5. No labs repeated on arrival. CXR negative. Patient denies chest pain at current time. 165 Advanced Directive reviewed and notes comfort measures/DNR. [facility] called patient's daughter Sera and discussed case with her. Discussed admitting for Observation or returning back to the [facility]. Daughter not completely sure, but agrees to Observation. 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 1700 Case presented to [facility] and Dr Ventura was the hospitalist. Dr Ventura offered transfer and admit to the [facility] for further labs and diagnostics and possible medication adjustments. 1720 [facility] contacted patient's daughter back and also discussed with patient. Patient is wanting to return to his room at the [facility]. Daughter agrees with sending patient back to residential for routine cares and pursuing no interventions at this time. Patient's son is on the way from [place] to visit him and then will plan return to the residential. Will send back to residential. Patient remained stable until departing back to [facility]. Last Recorded V/S: Last Vital Signs Temp 36.1 C 01/03/21 17:17 Pulse 82 01/03/21 17:17 Resp 22 H 01/03/21 17:17 BP 112/65 01/03/21 17:17 Pulse Ox 98 01/03/21 17:17 Departure - Departure Time of Disposition: 17:48 Disposition: DC/Tfer to [facility] 63 Condition: Good Clinical Impression: Elevated troponin I level, DNR (do not resuscitate), Malaise and fatigue, General physical deterioration Sepsis Event Note (ED) - Evaluation Sepsis Screening Result: No Definite Risk - Focused Exam Vital Signs: Vital Signs Temp Pulse Resp BP Pulse Ox 01/03/21 16:30 78 22 H 126/79 97 01/03/21 16:15 36.6 C 83 18 110/68 98 - Assessment/Plan Assessment:: 1)Elevated Troponin 2)DNR Status 3)Deteriorating Condition 4)Malaise & Fatigue Plan: -Resume all medications and residential orders -Follow up with PCP at [facility] -Return as needed to the ER
[2021-01-03 17:18] VITALS: BP 112/65; PULSE 82
== END 2021-01-03 18:25 ==
LOC: LL.ED 16:15 → UNDOADMOB 17:03 → LL.MS 17:03
DX: R79.89 Other specified abnormal findings of blood chemistry (principal); R53.81 Other malaise; R53.83 Other fatigue; R41.82 Altered mental status, unspecified; I25.10 Atherosclerotic heart disease of native coronary artery without angina pectoris; I11.0 Hypertensive heart disease with heart failure; I50.9 Heart failure, unspecified; E78.00 Pure hypercholesterolemia, unspecified; J44.9 Chronic obstructive pulmonary disease, unspecified; K21.9 Gastro-esophageal reflux disease without esophagitis; N40.1 Benign prostatic hyperplasia with lower urinary tract symptoms; N39.498 Other specified urinary incontinence; M10.9 Gout, unspecified; G30.9 Alzheimer's disease, unspecified; F02.80 Dementia in other diseases classified elsewhere, unspecified severity, without behavioral disturbance, psychotic disturbance, mood disturbance, and anxiety; Z66 Do not resuscitate; Z79.82 Long term (current) use of aspirin; Z79.899 Other long term (current) drug therapy
CPT/HCPCS: 93010; 99283-25; 99284